=== PATIENT | male | born 1995 | race Caucasian/White ===

== ENCOUNTER → 2017-05-05 | Outpatient (CLI) | payer BC, OTHER ==
[2017-05-05 12:45] VITALS: BP 123/72
== END ==
LOC: SDC 11:35
PROVIDERS: ATTEND Orthopaedic Surgery Orthopaedic Trauma
DX: Z45.2 Encounter for adjustment and management of vascular access device (principal); M00.9 Pyogenic arthritis, unspecified
CPT/HCPCS: 36569; 76937